=== PATIENT | female | born 1985 | race Caucasian/White ===

== ENCOUNTER 2016-07-23 18:03 | Emergency (ER) | payer MEDICAID ==
[~2016-07-23] VITALS: Wt 52.5 kg
[2016-07-23 19:19] LABS: URINE BLOOD (Dip) POC 2+ (NEGATIVE)
--- NOTE | 2016-07-23 19:35 | ERD ---
ER Documentation Chief Complaint Date/Time DATE: 07/23/16 TIME: 19:33 Chief Complaint pelvic pain x 3 days,dysuria, HPI This is a 31-year-old female presents to the emergency room for evaluation of painful urination and frequent urination for the past 3 days. The patient localizes pain to the suprapubic region, denies any radiation of pain. She denies any fevers, nausea or vomiting came to the ER for evaluation. She is denies any vaginal bleeding or vaginal discharge. ROS All systems reviewed and are negative except as per history of present illness. Allergies Allergies: Coded Allergies: No Known Allergy (Unverified , 07/23/16) PMhx/Soc Medical and Surgical Hx: pt denies Surgical Hx History of Surgery: No Anesthesia Reaction: No Hx Neurological Disorder: No Hx Respiratory Disorders: No Hx Cardiac Disorders: No Hx Psychiatric Problems: No Hx Miscellaneous Medical Probl: Yes (chlamydia) Hx Alcohol Use: No Hx Substance Use: No Hx Tobacco Use: No Physical Exam Vitals Vital Signs Date Time Temp Pulse Resp B/P Pulse Ox O2 Delivery O2 Flow Rate FiO2 07/23/16 18:04 97.8 90 18 134/78 99 Physical Exam Const: No acute distress Head: Atraumatic Eyes: Normal Conjunctiva ENT: Normal External Ears, Nose and Mouth. Neck: Full range of motion..~ No meningismus. Resp: Clear to auscultation bilaterally Cardio: Regular rate and rhythm, no murmurs Abd: Suprapubic tenderness to palpation, otherwise soft, non tender, non distended. Normal bowel sounds Skin: No petechiae or rashes Back: No midline or flank tenderness Ext: No cyanosis, or edema Neur: Awake and alert Psych: Normal Mood and Affect Results 24 hrs Laboratory Tests Test 07/23/16 19:18 Bedside Urine pH (LAB) 6.5 Bedside Urine Protein (LAB) Negative Bedside Urine Glucose (UA) 0.50% Bedside Urine Ketones (LAB) Negative Bedside Urine Blood 2+ Bedside Urine Nitrite (LAB) Negative Bedside Urine Leukocyte Esterase (L Negative Procedures/MDM This 31-year-old female presents to the ER for valuation frequent urination and painful urination. A bedside urinalysis does not reveal any leukocyte esterase , does reveal blood. I advise this patient that sometimes bedside urinalysis will not show bacterial and there is indeed an infection. This patient is displaying classic signs of acute urinary tract infection. She is afebrile, hemodynamically stable with no abdominal pain. Negative McBurney point tenderness, no CVAT. The patient will be discharged home with a prescription for ciprofloxacin instructions to follow-up with her primary care return to the ER if her symptoms worsen. HCG negative Departure Diagnosis: Primary Impression: Acute cystitis Condition: Stable CLAUDIA GUZMAN DO Jul 23, 2016 19:35
[2016-07-23] MEDS ORDERED: CIPR500T4 PO (19:36)
[2016-07-23 19:55] VITALS: BP 119/69; PULSE 99; RESP 18; TEMP 98.9
== END 2016-07-23 19:55 | disposition home or self-care (01) ==
LOC: FTE 18:03
DX: N30.00 Acute cystitis without hematuria (principal); R10.2 Pelvic and perineal pain
CPT/HCPCS: 81003; Z7502; 99283

== ENCOUNTER 2018-06-17 15:10 | Emergency (ER) | payer MEDICAID ==
[~2018-06-17] VITALS: Ht 152.4 cm; Wt 57.8 kg
[~2018-06-17 15:10] MED LIST: CIPR500T4 PO
[2018-06-17 15:29] VITALS: Ht 152.4 cm; Wt 57.8 kg
[2018-06-17] MEDS ORDERED: ASPIRIN 325 MG TAB PO STA (16:12)
[2018-06-17] MEDS ORDERED: KETOROLAC 30 MG INJ IV STA (16:12)
[2018-06-17] MEDS ORDERED: SOD CHLORIDE 0.9% 1,000 ML IV STA (16:12)
[2018-06-17] MEDS ORDERED: NAPR-985 PO (17:35)
--- NOTE | 2018-06-17 17:35 | ERD ---
ER Documentation Chief Complaint Chief Complaint pt bib family with c/o chest pain and "palpatations x 1 wk" HPI This is a very pleasant 33-year-old female with no past medical history the presents to the emergency department complaining of bilateral chest wall tenderness for 1 week. She indicates that she is also been experiencing palpitations. She has had a dry cough. She states the chest pain again is a dull achy sensation but denies any chest pressure that radiates to the neck arm back or jaw. She states the chest pain is worse when she coughs. She had no recent travel. No recent hospitalizations. No recent sick contacts. She denies any abdominal pain. She has no shortness of breath at rest or exertion. She denies any swelling of her lower extremities. She does not smoke tobacco. She has no family history of coronary artery disease in first-degree relatives. ROS All systems reviewed and are negative except as per history of present illness. Medications Home Meds No Active Prescriptions or Reported Meds Allergies Allergies: Coded Allergies: No Known Allergy (Unverified , 07/23/16) PMhx/Soc Medical and Surgical Hx: pt denies Medical Hx, pt denies Surgical Hx History of Surgery: No Anesthesia Reaction: No Hx Neurological Disorder: No Hx Respiratory Disorders: No Hx Cardiac Disorders: No Hx Psychiatric Problems: No Hx Miscellaneous Medical Probl: No Hx Alcohol Use: No Hx Substance Use: No Hx Tobacco Use: No Smoking Status: Never smoker Physical Exam Vitals Vital Signs Date Temp Pulse Resp B/P (MAP) Pulse Ox O2 O2 Flow FiO2 Time Delivery Rate 06/17/18 99.2 71 18 131/87 100 15:29 (102) Physical Exam Constitutional:Well-developed. Well-nourished. HEENT:Normocephalic. Atraumatic.Pupils were equal round reactive to light. Moist mucous membranes.No tonsillar exudates. Neck: No nuchal rigidity. No lymphadenopathy. No posterior cervical spine tenderness or step-offs. Respiratory: Not using accessory muscles of respiration.Lungs were clear to auscultation bilaterally. No rhonchi. No rales. No wheezing. Cardiovascular: Regular rate regular rhythm.No murmurs. No rubs were appreciated.S1, S2 normal. Distal pulses are palpable 2+ bilaterally. Bilateral reproducible chest wall tenderness with no crepitus no ecchymosis no flail chest . GI: Abdomen was soft. Nontender. Non Distended. No pulsatile abdominal masses or bruits. No rebound. No guarding. Bowel sounds were present and normal. Muscle skeletal: Full range of motion of both the upper and lower extremities bilaterally.Normal muscle tone.No assymetrical calf tenderness or swelling. Skin: No petechia, no purpura. No lesions on the palms or the soles of the feet. No maculopapular rash. NEURO: Patient was alert, awake, orientated x3.No facial droop. Gait observed and normal with no ataxia.Speech had regular rate and rhythm. No focal neurological deficits. Result Diagram: 06/17/18 1619 06/17/18 1619 Results 24 hrs Laboratory Tests Test 06/17/18 15:53 06/17/18 16:19 POC Beta HCG, Qualitative NEGATIVE White Blood Count 13.1 10^3/ul Red Blood Count 4.59 10^6/ul Hemoglobin 13.8 g/dl Hematocrit 41.1 % Mean Corpuscular Volume 89.5 fl Mean Corpuscular Hemoglobin 30.1 pg Mean Corpuscular Hemoglobin Concent 33.6 g/dl Red Cell Distribution Width 11.9 % Platelet Count 348 10^3/UL Mean Platelet Volume 9.9 fl Immature Granulocytes % 0.500 % Neutrophils % 78.2 % Lymphocytes % 14.1 % Monocytes % 6.1 % Eosinophils % 0.7 % Basophils % 0.4 % Nucleated Red Blood Cells % 0.0 /100WBC Immature Granulocytes # 0.070 10^3/ul Neutrophils # 10.2 10^3/ul Lymphocytes # 1.8 10^3/ul Monocytes # 0.8 10^3/ul Eosinophils # 0.1 10^3/ul Basophils # 0.1 10^3/ul Nucleated Red Blood Cells # 0.0 10^3/ul Prothrombin Time 12.1 Sec Prothrombin Time Ratio 0.9 INR International Normalized Ratio 0.89 Activated Partial Thromboplast Time 29.4 Sec Sodium Level 142 mmol/L Potassium Level 3.7 mmol/L Chloride Level 105 mmol/L Carbon Dioxide Level 26 mmol/L Anion Gap 11 Blood Urea Nitrogen 10 mg/dl Creatinine 0.51 mg/dl Est Glomerular Filtrat Rate mL/min > 60 mL/min Glucose Level 89 mg/dl Calcium Level 9.8 mg/dl Total Bilirubin 0.3 mg/dl Direct Bilirubin 0.00 mg/dl Indirect Bilirubin 0.3 mg/dl Aspartate Amino Transf (AST/SGOT) 23 IU/L Alanine Aminotransferase (ALT/SGPT) 25 IU/L Alkaline Phosphatase 71 IU/L Creatine Kinase 67 IU/L Creatine Kinase Index 1.3 Creatinine Kinase MB (Mass) 0.86 ng/ml Troponin I < 0.012 ng/ml B-Type Natriuretic Peptide 40 PG/ML Total Protein 8.1 g/dl Albumin 5.0 g/dl Globulin 3.10 g/dl Albumin/Globulin Ratio 1.61 Current Medications Medications Dose Sig/Cody Start Time Status Last (Trade) Ordered Route PRN Stop Time Admin Dose Reason Admin Sodium 1,000 ml @ Q1H STAT 06/17/18 DC 06/17/18 Chloride 1,000 mls/hr IV 16:12 17:11 06/17/18 17:11 Aspirin 325 mg ONCE STAT 06/17/18 DC 06/17/18 (Aspirin) PO 16:12 17:10 06/17/18 16:14 Ketorolac 30 mg ONCE STAT 06/17/18 DC 06/17/18 Tromethamine IV 16:12 17:10 (Toradol) 06/17/18 16:14 Procedures/MDM The patient presented to the emergency department complaining of chest pain. My clinical evaluation and workup was to distinguish minor causes of chest pain from acute life threatening cardiopulmonary causes such as myocardial infarction, pulmonary embolism, aortic dissection, esophageal rupture, cardiac tamponade, The patient was placed on a environmental monitoring specialist, continuous pulse oximetry and IV access established by nursing staff. The patient was given IV Toradol. 12 Lead EKG tracing ordered and reviewed by myself showed: Normal sinus rhythm of 96 bpm and no arrhythmia. UT interval normal. QRS duration normal. No ST segment elevation No ST segment depression. No changes consistent with acute ischemia. I obtained a 1 view chest radiograph that showed no infiltrates no pneumothorax or pleural effusions The patients chest pain was reproduced by palpation and horizontal flexion of the arms. It was my clinical impression that the pain was a result of inflammation of the skin and subcutaneous structures of the chest wall versus myocardial ischemia. I felt the patient had low-risk chest pain and could therefore be safely discharged with close follow-up. The patient was discharged home in fair condition. They were [facility] there was any worsening of their condition. The patient stated they would follow up with their PCP in the next 24-48 hours to initiate a suitable medication regimen under the care of their PCP as well as to allow their PCP to monitor any drug reactions. The patient was discharged home with prescriptions after they gave informed consent to the new medication. They were also fully informed by myself on the adverse effects and adverse drug interactions in order to provide adequate safeguards to prevent possible adverse reactions to medications. Departure Diagnosis: Primary Impression: Palpitations Additional Impression: Costochondritis, acute Condition: EMILY Nagel MD Jun 17, 2018 17:35
[2018-06-17 17:50] VITALS: BP 120/76; PULSE 92; RESP 16
== END 2018-06-17 17:20 | disposition home or self-care (01) ==
LOC: E/R 15:10
DX: M94.0 Chondrocostal junction syndrome [Tietze] (principal); R00.2 Palpitations
CPT/HCPCS: 71045; 80053; 81025; 82550; 82553; 83880; 84484; 85025; 85610; 85730; 93005; 96374; J1885; J7030; Z7502; Z7610

== ENCOUNTER 2018-08-28 07:30 | Emergency (ER) | payer MEDICAID ==
[~2018-08-28] VITALS: Ht 157.5 cm; Wt 54.7 kg
[~2018-08-28 07:30] MED LIST changes: -CIPR500T4 PO; +NAPR-985 PO
[2018-08-28 07:40] VITALS: BP 108/70; PULSE 90; RESP 18; Ht 157.5 cm; Wt 54.7 kg
[2018-08-28] MEDS ORDERED: LIDOCAINE/MYLANTA 40 ML BTL PO STA (08:01)
[2018-08-28] MEDS ORDERED: BELLADONNA/PHENOBARBITAL TAB PO STA (08:01)
[2018-08-28] MEDS ORDERED: ONDA4TAB14 PO (08:44)
[2018-08-28] MEDS ORDERED: ACET325T33 PO (08:44)
[2018-08-28] MEDS ORDERED: FAMO-96 PO (08:44)
--- NOTE | 2018-08-28 09:32 | ERD ---
ER Documentation Chief Complaint Chief Complaint pt has diarhhea and ap x 1 week HPI 33-year-old female presenting with diarrhea and abdominal pain x1 week. Patient has had some epigastric pain has a history of gastritis but is unsure if it is a new abnormality. Has had no bloody stool and no fevers. Has nausea but no vomiting. Has not had recent travel. Denies medical problems. NKDA. Surgical history denies. Social history denies ROS All systems reviewed and are negative except as per history of present illness. Medications Home Meds Active Scripts Acetaminophen* (Tylenol*) 325 Mg Tablet, 2 TAB PO Q6 PRN for PAIN AND OR ELEVATED TEMP, #20 TAB Prov:DEMARIO VIVAR PA-C 08/28/18 Famotidine* (Pepcid*) 20 Mg Tablet, 20 MG PO BID for 4 Days, #30 TAB Prov:DEMARIO VIVAR PA-C 08/28/18 Ondansetron (Ondansetron Odt) 4 Mg Tab.rapdis, 4 MG PO Q6H PRN for NAUSEA AND/OR VOMITING, #10 TAB Prov:DEMARIO VIVAR PA-C 08/28/18 Naproxen* (Naprosyn*) 500 Mg Tablet, 500 MG PO BID PRN for PAIN AND/OR INFLAMMATION, #30 TAB Prov:EMILY WALTON MD 06/17/18 Allergies Allergies: Coded Allergies: No Known Allergy (Unverified , 08/28/18) PMhx/Soc History of Surgery: No Anesthesia Reaction: No Hx Neurological Disorder: No Hx Respiratory Disorders: No Hx Cardiac Disorders: No Hx Psychiatric Problems: No Hx Miscellaneous Medical Probl: No Hx Alcohol Use: No Hx Substance Use: No Hx Tobacco Use: No Smoking Status: Never smoker FmHx Family History: No diabetes, No coronary disease, No other Physical Exam Vitals Vital Signs Date Temp Pulse Resp B/P (MAP) Pulse Ox O2 O2 Flow FiO2 Time Delivery Rate 08/28/18 98.9 90 18 108/70 96 07:40 (83) Physical Exam GENERAL: The patient is well-appearing, well-nourished, in no acute distress HEENT: Atraumatic. Conjunctivae are pink. Pupils equal, round, and reactive to light. There is no scleral icterus. Tympanic membranes clear bilaterally. Oropharynx clear. NECK: C-spine is soft and supple. There is no meningismus. There is no cervical lymphadenopathy. CHEST: Clear to auscultation bilaterally. There are no rales, wheezes or rhonchi. HEART: Regular rate and rhythm. No murmurs, clicks, rubs or gallops. ABDOMEN: Normal active bowel sounds. No distention. No organomegaly. Mild tenderness to palpation in the epigastric region. Result Diagram: 08/28/18 0808/28/18 08 Results 24 hrs Laboratory Tests Test 08/28/18 08:05 08/28/18 08:08 White Blood Count 12.3 10^3/ul Red Blood Count 4.74 10^6/ul Hemoglobin 14.5 g/dl Hematocrit 42.6 % Mean Corpuscular Volume 89.9 fl Mean Corpuscular Hemoglobin 30.6 pg Mean Corpuscular Hemoglobin Concent 34.0 g/dl Red Cell Distribution Width 11.7 % Platelet Count 360 10^3/UL Mean Platelet Volume 9.9 fl Immature Granulocytes % 0.300 % Neutrophils % 77.2 % Lymphocytes % 13.1 % Monocytes % 7.7 % Eosinophils % 1.5 % Basophils % 0.2 % Nucleated Red Blood Cells % 0.0 /100WBC Immature Granulocytes # 0.040 10^3/ul Neutrophils # 9.5 10^3/ul Lymphocytes # 1.6 10^3/ul Monocytes # 1.0 10^3/ul Eosinophils # 0.2 10^3/ul Basophils # 0.0 10^3/ul Nucleated Red Blood Cells # 0.0 10^3/ul Urine Color YELLOW Urine Clarity SLIGHTLY CLOUDY Urine pH 5.0 Urine Specific [place] 1.024 Urine Ketones NEGATIVE mg/dL Urine Nitrite NEGATIVE mg/dL Urine Bilirubin NEGATIVE mg/dL Urine Urobilinogen NEGATIVE mg/dL Urine Leukocyte Esterase 1+ [place]ank[place]/ul Urine Microscopic RBC 6 /HPF Urine Microscopic WBC 5 /HPF Urine Squamous Epithelial Cells FEW /HPF Urine Bacteria FEW /HPF Urine Mucus FEW /HPF Urine Hemoglobin 3+ mg/dL Urine Glucose NEGATIVE mg/dL Urine Total Protein NEGATIVE mg/dl Sodium Level 143 mmol/L Potassium Level 4.4 mmol/L Chloride Level 108 mmol/L Carbon Dioxide Level 24 mmol/L Anion Gap 11 Blood Urea Nitrogen 16 mg/dl Creatinine 0.48 mg/dl Est Glomerular Filtrat Rate mL/min > 60 mL/min Glucose Level 88 mg/dl Calcium Level 9.5 mg/dl Total Bilirubin 0.4 mg/dl Direct Bilirubin 0.00 mg/dl Indirect Bilirubin 0.4 mg/dl Aspartate Amino Transf (AST/SGOT) 52 IU/L Alanine Aminotransferase (ALT/SGPT) 41 IU/L Alkaline Phosphatase 68 IU/L Total Protein 8.1 g/dl Albumin 4.9 g/dl Globulin 3.20 g/dl Albumin/Globulin Ratio 1.53 Lipase 26 U/L POC Beta HCG, Qualitative NEGATIVE Current Medications Medications Dose Sig/Cody Start Time Status Last (Trade) Ordered Route PRN Stop Time Admin Dose Reason Admin 40 ml ONCE STAT 08/28/18 DC 08/28/18 Miscellaneous PO 08:01 08:06 Medication 08/28/18 08:02 (Gi Cocktail (2)) Belladonna/ 2 tab ONCE STAT 08/28/18 DC 08/28/18 Phenobarbital PO 08:01 08:06 () 08/28/18 08:02 Procedures/MDM DIAGNOSTIC IMAGING REPORT Patient: JYOTHI DAMON : 1985 Age: 33 Sex: F MR #: [id number] DOS: 08/28/18 0801 Ordering MD: ALINA VIVAR PA-C Location: E Room/Bed: PROCEDURE: US Abdomen. CLINICAL INDICATION: abdominal pain TECHNIQUE: Multiple real-time images were acquired of the patient's right upper quadrant abdomen and retroperitoneum utilizing a high resolution transducer. COMPARISON: None FINDINGS: The liver demonstrates increased echogenicity. The liver is normal in size and no focal solid lesions are seen. The liver measures 15 cm in length. The portal vein is patent with normal direction of flow. No intrahepatic biliary dilatation is seen. No gallstones are identified within the gallbladder. There is no pericholecystic fluid or gallbladder wall thickening. The common bile duct measures 3 mm in maximal dimension. The visualized portions of the pancreas are unremarkable. The tail of the pancreas is not seen. No free fluid is identified. The right kidney is normal in size, and demonstrate normal echogenicity and cortical thickness. The right kidney measures 10.6 cm in long dimension. There is no evidence of hydronephrosis. There are no kidney stones. RPTAT: AA IMPRESSION: Fatty infiltration of the liver. No evidence of gallstones. MDM: 33-year-old female presenting with abdominal pain and diarrhea x1 week. I have low suspicion for acute abdominal emergency. I have low suspicion for dehydration. I have low suspicion for infectious diarrhea. Patient likely has viral syndrome we discharged with supportive medications. Patient is discharged with strict ER precautions and told to follow-up with primary care within 1 to 2 days for close evaluation. Patient is told if symptoms change or worsen to return immediately to the ER. All questions answered at discharge Departure Diagnosis: Primary Impression: Epigastric pain Additional Impression: Diarrhea Condition: Stable Patient Instructions: Self-Care for Vomiting and Diarrhea, Epigastric Pain (Uncertain Cause) Referrals: [facility] YOU HAVE RECEIVED A MEDICAL SCREENING EXAM AND THE RESULTS INDICATE THAT YOU DO NOT HAVE A CONDITION THAT REQUIRES URGENT TREATMENT IN THE EMERGENCY DEPARTMENT. FURTHER EVALUATION AND TREATMENT OF YOUR CONDITION CAN WAIT UNTIL YOU ARE SEEN IN YOUR DOCTORS OFFICE WITHIN THE NEXT 1-2 DAYS. IT IS YOUR RESPONSIBILITY TO MAKE AN APPOINTMENT FOR FOLOW-UP CARE. IF YOU HAVE A PRIMARY DOCTOR --you should call your primary doctor and schedule an appointment IF YOU DO NOT HAVE A PRIMARY DOCTOR YOU CAN CALL OUR PHYSICIAN REFERRAL HOTLINE AT IF YOU CAN NOT AFFORD TO SEE A PHYSICIAN YOU CAN CHOSE FROM THE FOLLOWING [facility] [address] [facility]. [facility] [address] [facility] [place] [address] [facility]. [facility] [address] [facility]. [facility] [address] [facility]. [facility]. [address] Additional Instructions: FOLLOW UP WITH YOUR PRIMARY CARE PHYSICIAN TOMORROW.Return to this facility if you are not improving as expected. DEMARIO VIVAR PA-C Aug 28, 2018 09:32
== END 2018-08-28 09:03 | disposition home or self-care (01) ==
LOC: FTE 07:30
DX: R10.13 Epigastric pain (principal); R19.7 Diarrhea, unspecified
CPT/HCPCS: 76705; 80053; 81001; 81025; 83690; 85025; Z7610; 36415

== ENCOUNTER → 2019-01-02 | Outpatient (CLI) | payer MEDICAID ==
[~2019-01-02] MED LIST changes: +ACET325T33 PO; +FAMO-96 PO; +ONDA4TAB14 PO
== END | disposition home or self-care (01) ==
LOC: U/S 09:04
PROVIDERS: ATTEND Registered Nurse Obstetric, Inpatient
DX: O36.80X0 Pregnancy with inconclusive fetal viability, not applicable or unspecified (principal); O20.9 Hemorrhage in early pregnancy, unspecified; Z3A.01 Less than 8 weeks gestation of pregnancy
CPT/HCPCS: 76801; 76817